=== PATIENT | female | born 1955 | race Caucasian/White ===

== ENCOUNTER 2016-10-28 19:32 | Emergency (ER) | payer OTHER ==
[2016-10-28] MEDS ORDERED: Sodium Chloride 0.9% 1,000 ML IV ONE (19:56)
[2016-10-28] MEDS ORDERED: Ondansetron 4 MG/2 ML SDV IVPUSH ONE (19:57)
[2016-10-28 20:53] LABS: CHLORIDE,CL 104 mmol/L (98-107); SODIUM,NA 139 mmol/L (136-145)
[2016-10-28 22:31] VITALS: BP 139/81
--- NOTE | 2016-10-30 07:49 | ER ---
Date of Service: 10/28/2016 SUBJECTIVE: Annie presents to the emergency room with complaints of lightheadedness, difficulty walking, and near syncope. She was walking into [employer] when the above symptoms began. She was lowered to the floor, and EMS was summoned. She did not have a complete loss of consciousness and does have recollection of the entire event. The patient subsequently was hyperventilating at the scene and the patient was experiencing numbness to her fingers, toes, and to her lips. The patient states that she has not recently been ill. She denies any substernal chest pain. PAST MEDICAL HISTORY: 1. Dyslipidemia. 2. Hypertension. 3. Depression. 4. GERD. MEDICATIONS: 1. Ranitidine. 2. Metoprolol tartrate. 3. Cozaar. 4. Simvastatin. 5. Sertraline. ALLERGIES: NKDA. REVIEW OF SYSTEMS: General: Denies any fever or chills. HEENT: No sore throat, rhinorrhea, or congestion. Respiratory: No shortness breath. Cardiac: Denies any substernal chest pain. No jaw, arm, neck, or back pain. Gastrointestinal: No nausea, vomiting, or diarrhea. No melena, hematochezia, or hematemesis. Genitourinary: Denies any dysuria. Musculoskeletal: No myalgias or arthralgias. Neurologic: Please see history of present illness. PHYSICAL EXAMINATION: General: This is a 61-year-old female patient, in no acute distress. Vital Signs: Blood pressure is 135/75, pulse rate is 59, temperature is 36.1, respiratory rate initially was 32, O2 saturations 100%. Her breathing was coached, and at time of discharge, her respiratory rate was down to 12. Skin: Warm, pink, and dry. HEENT: Head is normocephalic, atraumatic. Eyes; PERRLA, extraocular movements intact. Mouth, oral mucosa is moist. No erythema or exudate noted in hypopharynx. Neck: Supple. No masses. There is no lymphadenopathy. Lungs: Clear to auscultation. Heart: Regular rate and rhythm. Abdomen: Soft, nontender. There is no hepatosplenomegaly or masses noted. Extremities: Without edema. Neurologic: She is alert and oriented. Answers all questions appropriately. DIAGNOSTIC DATA: Imaging: A 12-lead EKG was obtained showing a sinus rhythm without any acute ST or T-wave abnormalities. Two-view chest x-ray was obtained. There was no evidence of any acute infiltrate. Laboratory data: CBC was obtained and was all noted to be within normal limits. PT was 10.0, INR was 0.9. Comprehensive metabolic panel; sodium is 139, potassium is 3.4, chloride is 104, bicarb is 26, BUN is 17, creatinine is 0.9, creatinine clearance is 69.19, GFR is greater than 60, glucose is 97, calcium is 9.3, corrected calcium is 9.3, total bilirubin is 0.4. AST is 19, ALT is 34, alkaline phosphatase is 65. CK is 101, CK-MB was 1.4. Troponin is less than 0.017. Total protein is 7.2, albumin is 4.0. TSH was 1.767. EMERGENCY ROOM COURSE: IV access was established. The patient was given a liter of normal saline IV. She was given Zofran 4 mg IV for some nausea. She did report feeling significantly improved at time of discharge. Her carpopedal spasms had completely resolved as well. ASSESSMENT: 1. Near syncope. 2. Acute dehydration. PLAN: The patient will be discharged. Return to the emergency room if she develops any recurrence of her symptoms, chest pain, palpitations, or shortness of breath. All questions were answered. MWK: 10/29/2016 18:50:19 MODL: 10/29/2016 21:46:55 /[id number]
== END 2016-10-28 21:10 | disposition home or self-care (01) ==
LOC: VM.ED 19:32
DX: R55 Syncope and collapse (principal); E86.0 Dehydration; E78.5 Hyperlipidemia, unspecified; I10 Essential (primary) hypertension; K21.9 Gastro-esophageal reflux disease without esophagitis; F32.9 Major depressive disorder, single episode, unspecified; Z79.899 Other long term (current) drug therapy
CPT/HCPCS: 36415; 71020; 80053; 82550; 82553; 84443; 84484; 85025; 85610; 96361; 96374; 99285; J2405; J7030

== ENCOUNTER 2016-11-03 09:41 | Emergency (ER) | payer OTHER ==
[2016-11-03 09:55] VITALS: BP 123/74
[2016-11-03 10:58] LABS: CHLORIDE,CL 103 mmol/L (98-107); SODIUM,NA 139 mmol/L (136-145)
--- NOTE | 2016-11-04 08:24 | ER ---
Date of Service: 11/03/2016 SUBJECTIVE: Annie presents to the emergency room with syncopal episode. The patient states that this is the 2nd time she has experienced a syncopal episode. She states that she was [place] at the onset of the symptoms. Patient states that she could feel herself becoming lightheaded at the onset of the symptoms. She states that she did not experience any chest pain or shortness of breath prior to this incident. To note, the patient recently started on ranitidine for GERD. She states that she has been on metoprolol tartrate for some time. PAST MEDICAL HISTORY: 1. Syncope. 2. Previous myocardial infarction with 1 stent. 3. Dyslipidemia. 4. GERD. MEDICATIONS: 1. Simvastatin 10 mg daily. 2. Sertraline. 3. Ranitidine. 4. Metoprolol tartrate. 5. Cozaar. ALLERGIES: NKDA. REVIEW OF SYSTEMS: General: No fever or chills. No sore throat, rhinorrhea, congestion or palpitations. PHYSICAL EXAMINATION: General: This is a 61-year-old female patient, who is in no acute distress. Vital Signs: Blood pressure is 123/74, temperature is 35.2, pulse rate 63, respiratory rate is 14, O2 saturations 97%. There was no orthostatic change in her vital signs. Skin: Warm, pink, and dry. HEENT: Head is normocephalic, atraumatic. Eyes; PERRLA, extraocular movements are intact. There is no facial droop noted. Ears, TMs are clear. Mouth, oral mucosa is moist. No erythema or exudate noted to the hypopharynx. Neck: Supple. No masses. There is no lymphadenopathy. Lungs: Clear to auscultation. Heart: Regular rate and rhythm. Normal S1, S2. No S3, S4, murmurs, clicks, or rubs. Abdomen: Soft, nontender. There is no hepatosplenomegaly or masses noted. Extremities: Without edema. Neurologic: She is alert and oriented, answers all questions appropriately. Her speech is fluent. Her gait is within normal limits. DIAGNOSTIC DATA: A 12-lead EKG was obtained showing a sinus rhythm without any acute ST or T-wave abnormalities. LABORATORY DATA: CBC was obtained and was all noted to be within normal limits. Comprehensive metabolic panel was obtained and was all noted to be within normal limits with the exception of mildly elevated BUN at 19 and elevated nonfasting blood glucose at 111. Troponin was less than 0.017. Urinalysis revealed a trace of protein, but is otherwise within normal limits. ASSESSMENT: Syncopal episode. PLAN: I did discuss the findings with Cardiology at [facility]. They felt that this could likely secondary to her medications. I advised her not to continue with the ranitidine. If she does need medication for GERD, she can use Prilosec or Maalox as needed. I am going to set her up for a carotid ultrasound, an echocardiogram, and a Holter study. I would like her to follow up in the clinic in the next 7-10 days. All questions were answered. MWK: 11/04/2016 04:44:18 MODL: 11/04/2016 05:04:16 /[id number]
== END 2016-11-03 11:55 | disposition home or self-care (01) ==
LOC: VM.ED 09:41
DX: R55 Syncope and collapse (principal); K21.9 Gastro-esophageal reflux disease without esophagitis; I25.2 Old myocardial infarction; E78.5 Hyperlipidemia, unspecified; Z79.899 Other long term (current) drug therapy
CPT/HCPCS: 36415; 71020; 80053; 81001; 82550; 84484; 85025; 86140; 93005; 99285